=== PATIENT | male | born 1945 | race Caucasian/White ===

== ENCOUNTER 2016-12-28 12:53 | Day surgery (SDC) | payer MEDICARE, OTHER ==
[~2016-12-28 12:53] MED LIST: RINGER'S SOLUTION,LACTATED 1,000 ML IV PRN
--- OUTSIDE RECORDS SUMMARY | 2016-12-28 12:57 | XMS REPORT | Continuity of Care Document ---
:1945 Author Organization [facility] ([facility]) Address [place] [address] Phone [phone] Care Team Providers Name Role Phone Cody See Primary Care Provider [phone] Source Comments This disclosure is being made pursuant to the Care Everywhere program, applicable federal and state laws, and may not contain all informaitonavailable regarding this patient.[facility] ([facility]) Active Allergies and Adverse Reactions Allergen Noted Date Severity Reactions Comments Sulfa (Sulfonamide Antibiotics) 05/12/2011 OTHER Current Medications Prescription Sig. Disp. Refills Start End Status Date Date doxazosin 8 mg tablet Take 8 mg by Active mouth daily. hydrochlorothiazide 25 Take 25 mg by Active mg tablet mouth daily. MULTIVITAMIN PO Take 2 tablets Active by mouth 2 times daily. Oncovite ocular lubricant Instill 1 Drop Active (REFRESH) 1.4-0.6 % onto both eyes ophthalmic dropperette every evening. acetaminophen 500 mg Take 1,000 mg by Active tablet mouth daily as needed. aspirin 81 mg EC tablet Take 81 mg by Active mouth daily. docusate 100 mg capsule Take 1 capsule 30 capsule 0 09/01/20 Active (100 mg total) 16 by mouth 2 times daily. Take until you are no longer taking prescription pain medications to reduce the risk of constipation. Hold for loose stools. fluorometholone 0.1 % Instill 1 Drop 15 mL 11 12/10/19 Active ophthalmic suspension onto both eyes 17 daily. fluorometholone 0.1 % Instill 1 Drop 15 mL 6 08/11/20 Discontinued ophthalmic suspension onto both eyes 16 017 daily. INV hexaminolevulinate Instill into the 50 mL 0 08/20/20 Discontinued CYSVIEW (PC B308/13 bladder as per 16 017 PHOTOCURE ASA STUDY) protocol. bladder solution INV hexaminolevulinate Instill 50 mL 50 mL 0 09/01/20 Discontinued CYSVIEW (PC B308/13 into the bladder 16 017 PHOTOCURE ASA STUDY) as per protocol. bladder solution HYDROcodone-acetaminoph Take 1-2 tablets 30 tablet 0 09/01/20 Discontinued en 5-325 mg per tablet by mouth every 6 16 017 hours as needed for pain. Do not take more than 10 tablets in a 24 hour period. Do not take Tylenol or any other medications containing acetaminophen while using this medication. 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, both eyes 05/12/2011 Myopia 05/12/2011 Presbyopia 05/12/2011 MGD (meibomian gland disease) 05/12/2011 Nystagmus 05/12/2011 Most Recent Encounters Date Type Specialty Providers Description 12/11/2016 Office Visit Urology Loyd Almonte Subj: Heena Ortega MD Scheduled 12/09/2016 Orders Only Ophthalmology - Yane, Dx: Post corneal Specialty Wilfrid Alberto MD transplant (Primary Dx) 12/03/2016 Office Visit UrologLoyd Raman Dx: CIS (carcinoma MD Jordan in situ of bladder) (Primary Dx) 10/23/2016 Office Visit UrologLoyd Raman Dx: CIS (carcinoma MD Jordan in situ of bladder) Kayley Vance ARNP (Primary Dx) 2016 Orders/Notes Urology Kayley Vance ARNP 2016 Telephone Urology Loyd Almonte Chief Comp: MD Jordan Medication Question 10/16/2016 Office Visit UrologLoyd Raman Subj: Heena Ortega MD Scheduled Katerin Brito PA-C 10/16/2016 Office Visit Urology Loyd Almonte Dx: CIS (carcinoma MD Jordan in situ of bladder) Katerin Brito, (Primary Dx) DAVID 10/09/2016 Office Visit Urology Loyd Almonte Dx: CIS (carcinoma MD Jordan in situ of bladder) Elvira Ramos, (Primary Dx) DAVID 10/07/2016 Telephone Urology Loyd Almonte Chief Comp: Patient MD Jordan Concern 09/30/2016 Office Visit Ophthalmology - Jeff aCrey, Dx: Fuchs' corneal Specialty OD dystrophy (Primary Dx) Social History Tobacco Use Types Packs/Day Years Used Date Never Smoker Smokeless Tobacco: Never Used Tobacco Cessation:Counseling Given: Yes Comments: Alcohol Use Drinks/Week oz/Week Comments No Last Filed Vital Signs Vital Sign Reading Time Taken Blood Pressure 178/84 12/03/2016 1:33 PM CDT Pulse 72 12/03/2016 1:33 PM CDT Temperature 36 C (96.8 F) 12/03/2016 1:33 PM CDT Respiratory Rate 14 09/01/2016 11:39 AM GOLF COURSE ASSISTANT Height 1.676 m (5' 6") 09/01/2016 9:07 AM GOLF COURSE ASSISTANT Weight 137.5 kg (303 lb 2.1 oz) 10/16/2016 8:58 AM GOLF COURSE ASSISTANT Body Mass Index 48.95 10/16/2016 8:58 AM GOLF COURSE ASSISTANT Oxygen Saturation 96% 09/01/2016 1:45 PM GOLF COURSE ASSISTANT Plan of Care Date Type Specialty Providers Description 03/11/2017 Appointment Urology Loyd Almonte Subj: Heena Ortega MD Scheduled [address] [place] [address] [phone] (Fax) 08/11/2017 Appointment Ophthalmology - Alesia Winslow, Subj: Appointment Specialty OD Scheduled [address] [place] [address] [phone] (Fax) Health Maintenance Due Date Last Done Comments HCV Screening 1945 Hepatitis B Vaccine (1 of 3 - Primary Series) 1945 Tdap Vaccine 1956 Lipid Disorder Screening 1963 Td Vaccine 1963 Colonoscopy 1995 Prostate Cancer Screening 1995 Zoster Vaccine 2005 Pneumococcal Vaccine (1 of 2 - PCV13) 2010 Influenza Vaccine: Seasonal (Season Ended) 2017 Procedures from Last 3 Months Procedure Name Priority Date/Time Associated Comments Diagnosis SCOPE OF BLADDER AND Routine 12/11/2016 8:38 CIS (carcinoma in Results for this URETHRA, FOR DIAGNOSIS AM CDT situ of bladder) procedure are in the results section. [facility] Routine 10/23/2016 10:41 CIS (carcinoma in Results for this ANTICARCINOGENIC AGT AM GOLF COURSE ASSISTANT situ of bladder) procedure are in the results section. [facility] Routine 10/16/2016 12:55 CIS (carcinoma in Results for this ANTICARCINOGENIC AGT PM GOLF COURSE ASSISTANT situ of bladder) procedure are in the results section. [facility] Routine 10/09/2016 9:43 CIS (carcinoma in Results for this ANTICARCINOGENIC AGT AM GOLF COURSE ASSISTANT situ of bladder) procedure are in the results section. Results from Last 3 Months CYSTOSCOPY (12/11/2016 8:38 AM) Narrative Loyd Almonte MD 12/11/20168:38 AM Urology Clinic Note Encounter Date: 12/03/2016 Subjective: Chief Complaint Chief Complaint Patient presents with Patient Reported Reason For Visit ADD to already scheduled urology f/u; cystoscopy with Dr Almonte in week of november 30 History of Present Illness: Odalis Mendoza is a 71 y.o. male seen for #3/3 Maintainence A of quadruple immunotherapy intravesical therapy. The patient has history of high grade T1 bladder cancer diagnosed in 2006 who underwent 4 treatments of intravesical mitomycin C. He underwent biopsy x2 of suspicious regions of the bladder on 01/02/16 on the posterior wall with path returning as CIS. He has since undergone 6/6 induction intravesical BCG/IFN treatments. He had restaging done on 04/21/16. Final pathology showed CIS with abnormal FISH (13/40) and negative urine cytology.Received 6/6 induction intravesical treatment of Quad Immunotherapy on 07/03/16. Cystoscopy with cysview on 08/20/16 revealed two areas ~ 2 cm square of increased pink FLAT fluorescence in the left upper lateral region and in the right upper lateral region. On 09/01/16 operative restaging and TURBT of small bladder tumor (<2 cm contiguous area near the right ureteral orifice); bladder biopsies negative; bladder wash cytology negative; normal FISH. He has completed maintenance A of Quad Immunotherapy on 10/23/16 and returns for cystoscopy Initial Pathology:high grade T1 bladder cancer 2006 Most Recent Positive: 04/28/2016 CIS, positive FISH, negative cytology Most Recent Negative Stagin09/01/2016 negative biopsy, cytology and normal FISH Treatment Cycle: completed Maintenance A of BCG/IFN Last Cystoscopy: 08/20/2016 two areas ~ 2 cm square of increased pink FLAT fluorescence in the left upper lateral region and in the right upper lateral region Last Cytology:normal 08/20/2016 Last FISH: 08/20/2016 and 09/04/[address] scan: 03/30/2016 no evidence of upper tract disease, no lymphadenopathy, mild nodularity of post/sup wall of bladder Active Problem List with Overview Notes Diagnosis Date Noted 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, both eyes 05/12/2011 Myopia 05/12/2011 Presbyopia 05/12/2011 MGD (meibomian gland disease) 05/12/2011 Nystagmus 05/12/2011 Past Surgical History Procedure Laterality Date Nlkenlvnxx38/17/2012 Hernia repair Left inguinal Knee surgery Left patella removed Bilateral extraction of cataracts with lens implants Bilateral Scope bladder and urethra, with biopsy N/A 08/24/2013 Procedure: BC W/ BIOPSY;Surgeon: Logan Sharif MD; Location: UROLOGY OR;Service: Urology Bladder [id number] Orthopedic [id number] Shoulder separation Scope bladder and urethra, with biopsy N/A 01/02/2016 Procedure: BC W/ BIOPSY;Surgeon: Logan Sharif MD; Location: UROLOGY OR;Service: Urology Scope bladder and urethra, with biopsy N/A 04/21/2016 Procedure: BC W/ BIOPSY;Surgeon: Loyd Almonte MD; Location: UROLOGY OR;Service: Urology Scope bladder, removal of tumors, small N/A 09/01/2016 Procedure: BC W/ FULG &/OR RESECTION, SM BLADDER TUMOR; Surgeon: Loyd Almonte MD;Location: UROLOGY OR; Service: Urology Scope bladder and urethra, with biopsy N/A 09/01/2016 Procedure: BC W/ BIOPSY;Surgeon: Loyd Almonte MD; Location: UROLOGY OR;Service: Urology Family History Problem Relation Age of Onset Hypertension Father Heart Disease Brother Heart Disease Mother Heart Disease Brother Diabetes Mother Diabetes Brother Diabetes Brother Social History Social History Marital Status: Spouse Name: farideh Number of Children: 1 Years of Education: N/A Occupational History Not on file. Social History Main Topics Smoking status: Never Smoker Smokeless tobacco: Never Used Alcohol Use: No Drug Use: No Sexual Activity: Partners: Female Other Topics Concern Caffeine Concern Yes Weight Concern Yes Social History Narrative Current Outpatient Prescriptions Medication Sig Dispense Refill acetaminophen 500 mg tablet Take 1,000 mg by mouth daily as needed. aspirin 81 mg EC tablet Take 81 mg by mouth daily. docusate 100 mg capsule Take 1 capsule (100 mg total) by mouth 2 times daily. Take until you are no longer taking prescription pain medications to reduce the risk of constipation. Hold for loose stools. (Patient taking differently: Take 100 mg by mouth 2 times daily as needed. Take until you are no longer taking prescription pain medications to reduce the risk of constipation. Hold for loose stools.) 30 capsule 0 doxazosin 8 mg tablet Take 8 mg by mouth daily. fluorometholone 0.1 % ophthalmic suspension Instill 1 Drop onto both eyes daily. 15 mL 6 hydrochlorothiazide 25 mg tablet Take 25 mg by mouth daily. MULTIVITAMIN PO Take 2 tablets by mouth 2 times daily. Oncovite ocular lubricant (REFRESH) 1.4-0.6 % ophthalmic dropperette Instill 1 Drop onto both eyes every evening. No current facility-administered medications for this visit. Allergies Allergen Reactions Sulfa (Sulfonamide Antibiotics) OTHER Review of Systems All systems were reviewed and are negative except for: Ears: Ringing in the ears Urogenital:Up at night to urinate Cancer: Yes Other issues: None See HPI. All other ROS negative. Objective: BP 178/84 mmHg | Pulse 72 | Temp(Src) 36 C (96.8 F) (Tympanic) General:NAD, A&Ox3 Lungs: unlabored Skin: pink, warm, dry Neuro:Grossly intact Psych:Normal affect Cystoscopy Performed by: NANCY MEDINA Ordered by: LOYD ALMONTE Procedure Details: Cystoscopy (13508) Patient tolerance: Patient tolerated the procedure well with no immediate complications Supervision type: Direct Comments: After informed written consent was obtained, the patient was identified and taken to the procedure suite. Antibiotics were administered.The perineum was prepped and draped in the standard sterile fashion.Viscous Lidocaine jelly was injected into the urethra.A flexible cystoscope was then navigated into the bladder under direct visualization. Panendoscopy of the bladder did not reveal any suspicious lesions, papillary growths, foreign bodies or calculi.The cystoscope was then retroflexed upon itself and the bladder neck visualized; no abnormalities were detected.Bladder washings were then obtained and sent for cytology.The cystoscope was then slowly withdrawn; no urethral abnormalities were detected. The patient tolerated the procedure well and without any immediate complications. Assessment: Odalis Mendoza is a 71 y.o. malewith a history of T1HG UTC + CIS who recent completed quad immunotherapy on 07/03/16 for residual CIS of the bladder. Blue light cystoscopy performed in the clinic on 08/20/16 showed "two areas ~ 2 cm square of increased pink FLAT fluorescence in the left upper lateral region and in the right upper lateral region". Operative restaging 09/01/16 with resection small bladder tumor (<2 cm contiguous area near the right ureteral orifice); bladder biopsies and bladder wash cytology negative.Has completed Maintenance A of Quad immunotherapy. Cystoscopy unremarkable today, pending cytology and FISH results. Plan: RTC 3 months with cysto, cytology, FISH SILVESTRE Hanna Staff Involved Staff and PA/RELATIONSHIP MANAGEMENT LEAD/PNP/NM (team effort NPP & Faculty documentation) Staff Physician Statement I have discussed the case with the non-physician provider and have personally documented the History, Physical Exam, and Assessment and Plan in the Staff Physician Note section as noted below. 71 y.o. malewith a history of T1HG UTC + CIS who recent completed quad immunotherapy on 07/03/16 for residual CIS of the bladder. Blue light cystoscopy performed in the clinic on 08/20/16 showed "two areas ~ 2 cm square of increased pink FLAT fluorescence in the left upper lateral region and in the right upper lateral region". Operative restaging 09/01/16 with resection small bladder tumor (<2 cm contiguous area near the right ureteral orifice); bladder biopsies and bladder wash cytology negative.Has completed Maintenance A of Quad immunotherapy.Feeling well. Exam unremarkable. 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 Plan: Cystoscopy unremarkable today, pending cytology and FISH result. RTC 3 months with cysto, cytology, FISH. Loyd Almonte MD, FACS Professor & Director of Urologic Oncology [facility] CYTOGENETICS - FISH STUDY (12/03/2016 3:12 PM) Component Value Range Case Report Cytogenetics Fish Study Case: [id number] Authorizing Provider:Tessa Marie ARNP Collected: 12/03/2016 03:12 PM Ordering Location: Urology Clinic Received: 12/04/2016 10:01 AM Pathologist: Romero Carlos MD Specimen:Bladder Washing FISH Final Result Normal Normal Final Interpretation Comment Patient Name: ODALIS MENDOZA Physician: Dr. Mcguire Cytogenetics Lab No.:[id number] Specimen No.:[id number] FISH Performed on: BLADDER CELLS Date Collected:12/03/2016 Date Requested:12/03/2016 Date of Visit: 12/03/2016 Date Received in Lab:12/03/2016 Date of Final Report:12/11/2016 Technologist(s): RUCHI INDICATIONS: UROVYSION, BLADDER CANCER METHODS/RESULTS: Fluorescence in situ hybridization (FISH) studies were performed on nuclei using the UroVysion Bladder Cancer Recurrence Kit which consists of a 4-probe mixture containing DNA sequences specific for centromere regions of chromosomes 3, 7, 17 and locus specific region for chromosome 9p21. INTERPRETATION: NORMAL FISH RESULTS Molecular cytogenetic studies were normal in 50 nuclei examined in this specimen. These findings should be interpreted in conjunction with morphology and/or other ancillary studies. Intended Use and Limitations:The [employer] UroVysion Bladder Cancer Recurrence Kit (UroVysion Kit) is designed to detect aneuploidy for chromosomes 3, 7, 17, and loss of the 9p21 locus via fluorescenc e in situ hybridization (FISH) in urine specimens from subjects with transitional cell carcinoma of the bladder.Results from the UroVysion Kit are intended for use as a noninvasive method for gagan toring for tumor recurrence in conjunction with cystoscopy in patients previously diagnosed with bladder cancer.A minimum of 25 morphologically abnormal cells are analyzed.The signal distribut ion for morphologically abnormal cells showing either a gain of multiple chromosomes (i.e., 3 or more signals for more than one of the following probes: CEP3 red, CEP7 green or CEP17) or a homozygous loss of 9p21 (i.e., no signals for LSI 9p21 yellow probe) is recorded. Analysis continues until either >=4 cells with gains of multiple chromosomes or >=12 cells with homozygous loss of 9p21 are detected, or until the entire sample is analyzed.Results are reported as the number of chromosomally abnormal cells.Specimens that show > =4 cells with multiple chromosome gains or >= 12 cells with loss of both copies of 9p21 are considered positive for bladder cancer recurrence.If the results are at or near the cut-off point, results should be interpreted with caution and in t he context of other clinical findings.Positive FISH results in the absence of other signs or symptoms of bladder cancer recurrence may be evidence of other urinary tract related cancers, e.g., ure ter, urethra, renal, and/or prostate in males, and further patient follow-up is justified.Negative FISH results in the presence of other signs and symptoms of bladder cancer recurrence need to be regarded as suspicious false negative results; repeat slide interpretation or testing would be indicated.Although the Vysis UroVysion Kit was designed to detect genetic changes associated with mos t bladder cancers, there will be some bladder cancers whose genetic changes cannot be detected by the UroVysion test.Although this FISH probe kit has been approved by the U.S. FDA as an in vitro d iagnostic product the protocol has been modified and the new performance characteristics determined by the [facility] as required by the CLIA '88 regulations.This m odified protocolhas not been cleared or approved by the U.S. Food and Drug Administration.The FDA has determined that such clearance or approval is not necessary.Pursuant to the requiremen ts of CLIA '88, this laboratory has established and certified the test's accuracy and precision. This test is used for clinical purposes and should not be regarded as investigational or for research. Specimen Blood - Bladder Washing CYTOLOGY NON-PLUMBING SERVICE TECHNICIAN EXAM (12/03/2016 3:12 PM) Component Value Range Case Report Non-Ram Press Operator Cytopathology Case: [id number] Authorizing Provider:Tessa Marie ARNP Collected: 12/03/2016 03:12 PM Ordering Location: Urology Clinic Received: 12/04/2016 07:46 AM Pathologist: Wayne Cedeno MD Specimen:Bladder Washing Interpretation Bladder washing:Negative for high grade urothelial carcinoma. I have personally reviewed this case and edited the report as necessary. Specimen Description 60 mL yellow fluid Specimen Other - Bladder Washing BLADDER CATHETERIZATION (10/23/2016 10:41 AM) Narrative Kayley Vance ARNP 10/23/2016 10:41 AM Urology Clinic Note Encounter Date: 10/23/2016 Subjective: Chief Complaint Chief Complaint Patient presents with Patient Reported Reason For Visit A quad immunotherapy to start 4-6 weeks from 09/01/16 History of Present Illness: Odalis Mendoza is a 71 y.o. male seen for #3/3 Maintainence A of quadruple immunotherapy intravesical therapy. The patient has history of high grade T1 bladder cancer diagnosed in 2006 who underwent 4 treatments of intravesical mitomycin C. He underwent biopsy x2 of suspicious regions of the bladder on 01/02/16 on the posterior wall with path returning as CIS. He has since undergone 6/6 induction intravesical BCG/IFN treatments. He had restaging done on 04/21/16. Final pathology showed CIS with abnormal FISH (13/40) and negative urine cytology.Recieved # 6 of induction intravesical treatment of Quad Immunotherapy on 07/03/16. Cystoscopy with cysview on 08/20/16 revealed two areas ~ 2 cm square of increased pink FLAT fluorescence in the left upper lateral region and in the right upper lateral region. On 09/01/16 operative restaging and TURBT of small bladder tumor (<2 cm contiguous area near the right ureteral orifice); bladder biopsies negative; bladder wash cytology negative; normal FISH. He denies hematuria, fever. 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, both eyes 05/12/2011 Myopia 05/12/2011 Presbyopia 05/12/2011 MGD (meibomian gland disease) 05/12/2011 Nystagmus 05/12/2011 Past Surgical History Procedure Laterality Date Qorcqaenaw98/17/2012 Hernia repair Left inguinal Knee surgery Left patella removed Bilateral extraction of cataracts with lens implants Bilateral Scope bladder and urethra, with biopsy N/A 08/24/2013 Procedure: BC W/ BIOPSY;Surgeon: Logan Sharif MD; Location: UROLOGY OR;Service: Urology Bladder [id number] Orthopedic [id number] Shoulder separation Scope bladder and urethra, with biopsy N/A 01/02/2016 Procedure: BC W/ BIOPSY;Surgeon: Logan Sharif MD; Location: UROLOGY OR;Service: Urology Scope bladder and urethra, with biopsy N/A 04/21/2016 Procedure: BC W/ BIOPSY;Surgeon: Loyd Almonte MD; Location: UROLOGY OR;Service: Urology Scope bladder, removal of tumors, small N/A 09/01/2016 Procedure: BC W/ FULG &/OR RESECTION, SM BLADDER TUMOR; Surgeon: Loyd Almonte MD;Location: UROLOGY OR; Service: Urology Scope bladder and urethra, with biopsy N/A 09/01/2016 Procedure: BC W/ BIOPSY;Surgeon: Loyd Almonte MD; Location: UROLOGY OR;Service: Urology Family History Problem Relation Age of Onset Hypertension Father Heart Disease Brother Diabetes Brother Heart Disease Mother Heart Disease Brother Diabetes Mother Diabetes Brother Social History Social History Marital Status: Spouse Name: farideh Number of Children: 1 Years of Education: N/A Occupational History Not on file. Social History Main Topics Smoking status: Never Smoker Smokeless tobacco: Never Used Alcohol Use: No Drug Use: No Sexual Activity: Partners: Female Other Topics Concern Caffeine Concern Yes Weight Concern Yes Social History Narrative Current Outpatient Prescriptions Medication Sig Dispense Refill acetaminophen 500 mg tablet Take 1,000 mg by mouth daily as needed. aspirin 81 mg EC tablet Take 162 mg by mouth daily. docusate 100 mg capsule Take 1 capsule (100 mg total) by mouth 2 times daily. Take until you are no longer taking prescription pain medications to reduce the risk of constipation. Hold for loose stools. 30 capsule 0 doxazosin 8 mg tablet Take 8 mg by mouth daily. fluorometholone 0.1 % ophthalmic suspension Instill 1 Drop onto both eyes daily. 15 mL 6 hydrochlorothiazide 25 mg tablet Take 25 mg by mouth daily. HYDROcodone-acetaminophen 5-325 mg per tablet Take 1-2 tablets by mouth every 6 hours as needed forpain. Do not take more than 10 tablets in a 24 hour period. Do not take Tylenol or any other medications containing acetaminophen while using this medication. 30 tablet 0 INV hexaminolevulinate CYSVIEW (PC B308/13 PHOTOCURE ASA STUDY) bladder solution Instill into the bladder as per protocol. 50 mL 0 INV hexaminolevulinate CYSVIEW (PC B308/13 PHOTOCURE ASA STUDY) bladder solution Instill 50 mL into the bladder as per protocol. 50 mL 0 MULTIVITAMIN PO Take 1 tablet by mouth daily. ocular lubricant (REFRESH) 1.4-0.6 % ophthalmic dropperette Instill 1 Drop onto both eyes every evening. No current facility-administered medications for this visit. Allergies Allergen Reactions Sulfa (Sulfonamide Antibiotics) OTHER Review of Systems See HPI. All other ROS negative. Objective: There were no vitals taken for this visit. General:NAD, A&Ox3 Lungs: unlabored Skin: pink, warm, dry Neuro:Grossly intact Psych:Normal affect Bladder catheterization Performed by: KAYLEY VANCE Catheter detail: intravesical instillation of chemotherapeutic agent (88549) Instillation: BCG/IFN Catheter size: 14 Fr Patient tolerance: Patient tolerated the procedure well with no immediate complications Supervision type: Indirect 250 mcg/ml of Leukine was administered SQ in the RLQ. The urethral meatus and surrounding area was prepped sterilely with Betadine solution. 2% Lidocaine jelly was given into the urinary meatus. A 14-Albanian catheter was passed into the bladder, and the bladder was drained of clear yellow urine. 0.1 vial of BCG and 50 million units of alpha interferon 2b and 21.6 million units of proleukin was given via catheterinto the bladder. The catheter was removed. The patient was instructed to hold the bladder solution for 2 hours prior to voiding. Assessment: Odalis Mendoza is a 71 y.o. malewith a history of T1HG UTC + CIS who recent completed quad immunotherapy on 07/03/16 for residual CIS of the bladder. Blue light cystoscopy performed in the clinic on 08/20/16 showed "two areas ~ 2 cm square of increased pink FLAT fluorescence in the left upper lateral region and in the right upper lateral region". Operative restaging 09/01/16 with resection small bladder tumor (<2 cm contiguous area near the right ureteral orifice); bladder biopsies and bladder wash cytology negative.He is now receiving maintenance therapy. Plan: Today completes Maintenance A.Surveillance cystoscopy scheduled for 12/03/16 Dr Gandara was available for consult. SILVESTRE Beltran BLADDER CATHETERIZATION (10/16/2016 12:55 PM) Narrative Katerin Brito PA-C 10/16/2016 12:55 PM Urology Clinic Note Encounter Date: 10/16/2016 Subjective: Chief Complaint Chief Complaint Patient presents with Procedure A quad immunotherapy to start 4-6 weeks from 09/01/16 History of Present Illness: Odalis Mendoza is a 70 y.o. male seen for #2/3 Maintainence A of quadruple immunotherapy intravesical therapy. The patient has history of high grade T1 bladder cancer diagnosed in 2006 who underwent 4 treatments of intravesical mitomycin C. He underwent biopsy x2 of suspicious regions of the bladder on 01/02/16 on the posterior wall with path returning as CIS. He has since undergone 6/6 induction intravesical BCG/IFN treatments. He had restaging done on 04/21/16. Final pathology showed CIS with abnormal FISH (13/40) and negative urine cytology.Recieved # 6 of induction intravesical treatment of Quad Immunotherapy on 07/03/16. Cystoscopy with cysview on 08/20/16 revealed two areas ~ 2 cm square of increased pink FLAT fluorescence in the left upper lateral region and in the right upper lateral region. On 09/01/16 operative restaging and TURBT of small bladder tumor (<2 cm contiguous area near the right ureteral orifice); bladder biopsies negative; bladder wash cytology negative; normal FISH. He denies hematuria, fever. 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, both eyes 05/12/2011 Myopia 05/12/2011 Presbyopia 05/12/2011 MGD (meibomian gland disease) 05/12/2011 Nystagmus 05/12/2011 Past Surgical History Procedure Laterality Date Yhgobzqyph11/17/2012 Hernia repair Left inguinal Knee surgery Left patella removed Bilateral extraction of cataracts with lens implants Bilateral Scope bladder and urethra, with biopsy N/A 08/24/2013 Procedure: BC W/ BIOPSY;Surgeon: Logan Sharif MD; Location: UROLOGY OR;Service: Urology Bladder [id number] Orthopedic [id number] Shoulder separation Scope bladder and urethra, with biopsy N/A 01/02/2016 Procedure: BC W/ BIOPSY;Surgeon: Logan Sharif MD; Location: UROLOGY OR;Service: Urology Scope bladder and urethra, with biopsy N/A 04/21/2016 Procedure: BC W/ BIOPSY;Surgeon: Loyd Almonte MD; Location: UROLOGY OR;Service: Urology Scope bladder, removal of tumors, small N/A 09/01/2016 Procedure: BC W/ FULG &/OR RESECTION, SM BLADDER TUMOR; Surgeon: Loyd Almonte MD;Location: UROLOGY OR; Service: Urology Scope bladder and urethra, with biopsy N/A 09/01/2016 Procedure: BC W/ BIOPSY;Surgeon: Loyd Almonte MD; Location: UROLOGY OR;Service: Urology Family History Problem Relation Age of Onset Hypertension Father Heart Disease Brother Diabetes Brother Heart Disease Mother Heart Disease Brother Diabetes Mother Diabetes Brother Social History Social History Marital Status: Spouse Name: farideh Number of Children: 1 Years of Education: N/A Occupational History Not on file. Social History Main Topics Smoking status: Never Smoker Smokeless tobacco: Never Used Alcohol Use: No Drug Use: No Sexual Activity: Partners: Female Other Topics Concern Caffeine Concern Yes Weight Concern Yes Social History Narrative Current Outpatient Prescriptions Medication Sig Dispense Refill acetaminophen 500 mg tablet Take 1,000 mg by mouth daily as needed. aspirin 81 mg EC tablet Take 162 mg by mouth daily. docusate 100 mg capsule Take 1 capsule (100 mg total) by mouth 2 times daily. Take until you are no longer taking prescription pain medications to reduce the risk of constipation. Hold for loose stools. 30 capsule 0 doxazosin 8 mg tablet Take 8 mg by mouth daily. fluorometholone 0.1 % ophthalmic suspension Instill 1 Drop onto both eyes daily. 15 mL 6 hydrochlorothiazide 25 mg tablet Take 25 mg by mouth daily. HYDROcodone-acetaminophen 5-325 mg per tablet Take 1-2 tablets by mouth every 6 hours as needed forpain. Do not take more than 10 tablets in a 24 hour period. Do not take Tylenol or any other medications containing acetaminophen while using this medication. 30 tablet 0 INV hexaminolevulinate CYSVIEW (PC B308/13 PHOTOCURE ASA STUDY) bladder solution Instill into the bladder as per protocol. 50 mL 0 INV hexaminolevulinate CYSVIEW (PC B308/13 PHOTOCURE ASA STUDY) bladder solution Instill 50 mL into the bladder as per protocol. 50 mL 0 MULTIVITAMIN PO Take 1 tablet by mouth daily. ocular lubricant (REFRESH) 1.4-0.6 % ophthalmic dropperette Instill 1 Drop onto both eyes every evening. Current Facility-Administered Medications Medication Dose Route Frequency Provider Last Rate Last Dose naproxen (NAPROSYN) tablet 250 mg250 mg Oral Once PRN Katerin Brito PA-C Allergies Allergen Reactions Sulfa (Sulfonamide Antibiotics) OTHER Review of Systems See HPI. All other ROS negative. Objective: BP 140/68 mmHg | Pulse 65 | Temp(Src) 36.4 C (97.5 F) (Tympanic) | Wt 137.5 kg (303 lb 2.1 oz) General:NAD, A&Ox3 Lungs: unlabored Skin: pink, warm, dry Neuro:Grossly intact Psych:Normal affect Bladder catheterization Performed by: KATERIN BRITO Catheter detail: intravesical instillation of chemotherapeutic agent ([id number]) Instillation: BCG/IFN Catheter type: Gomes Catheter size: 14 Fr Patient tolerance: Patient tolerated the procedure well with no immediate complications Supervision type: Indirect 250 mcg/ml of Leukine was administered SQ in the LUQ. The urethral meatus and surrounding area was prepped sterilely with Betadine solution. 2% Lidocaine jelly was given into the urinary meatus. A 14-Albanian catheter was passed into the bladder, and the bladder was drained of clear yellow urine. 0.1 vial of BCG and 50 million units of alpha interferon 2b and 21.6 million units of proleukin was given via catheterinto the bladder. The catheter was removed. The patient was instructed to hold the bladder solution for 2 hours prior to voiding. Assessment: Odalis Mendoza is a 70 y.o. malewith a history of T1HG UTC + CIS who recent completed quad immunotherapy on 07/03/16 for residual CIS of the bladder. Blue light cystoscopy performed in the clinic on 08/20/16 showed "two areas ~ 2 cm square of increased pink FLAT fluorescence in the left upper lateral region and in the right upper lateral region". Operative restaging 09/01/16 with resection small bladder tumor (<2 cm contiguous area near the right ureteral orifice); bladder biopsies and bladder wash cytology negative.He is now receiving maintenance therapy. Plan: Scheduled 10/23/16 for #3/3 Maintainence A of quadruple immunotherapy intravesical therapy. Hand outs provided to pt - BCAN Dr Almonte was available for consult. LANETTE Saavedra BLADDER CATHETERIZATION (10/09/2016 9:43 AM) Narrative Elvira Ramos PA-C 10/09/20169:43 AM Urology Clinic Note Encounter Date: 10/09/2016 Subjective: Chief Complaint Chief Complaint Patient presents with Procedure A quad immunotherapy to start 4-6 weeks from 09/01/16 History of Present Illness: Odalis Mendoza is a 70 y.o. male seen for #1/3 MaintainenceA of quadruple immunotherapy intravesical therapy. The patient has history of high grade T1 bladder cancer diagnosed in 2006 who underwent 4 treatments of intravesical mitomycin C. He underwent biopsy x2 of suspicious regions of the bladder on 01/02/16 on the posterior wall with path returning as CIS. He has since undergone 6/6 induction intravesical BCG/IFN treatments. He had restaging done on 04/21/16. Final pathology showed CIS with abnormal FISH (13/40) and negative urine cytology.Recieved # 6 of induction intravesical treatment of Quad Immunotherapy on 07/03/16. Cystoscopy with cysview on 08/20/16 revealed two areas ~ 2 cm square of increased pink FLAT fluorescence in the left upper lateral region and in the right upper lateral region. On 09/01/16 operative restaging and TURBT of small bladder tumor (<2 cm contiguous area near the right ureteral orifice); bladder biopsies negative; bladder wash cytology negative; normal FISH. Today the patient denies hematuria, fever, or chills. 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, both eyes 05/12/2011 Myopia 05/12/2011 Presbyopia 05/12/2011 MGD (meibomian gland disease) 05/12/2011 Nystagmus 05/12/2011 Past Surgical History Procedure Laterality Date Peftrojrla76/17/2012 Hernia repair Left inguinal Knee surgery Left patella removed Bilateral extraction of cataracts with lens implants Bilateral Scope bladder and urethra, with biopsy N/A 08/24/2013 Procedure: BC W/ BIOPSY;Surgeon: Logan Sharif MD; Location: UROLOGY OR;Service: Urology Bladder [id number] Orthopedic [id number] Shoulder separation Scope bladder and urethra, with biopsy N/A 01/02/2016 Procedure: BC W/ BIOPSY;Surgeon: Logan Sharif MD; Location: UROLOGY OR;Service: Urology Scope bladder and urethra, with biopsy N/A 04/21/2016 Procedure: BC W/ BIOPSY;Surgeon: Loyd Almonte MD; Location: UROLOGY OR;Service: Urology Scope bladder, removal of tumors, small N/A 09/01/2016 Procedure: BC W/ FULG &/OR RESECTION, SM BLADDER TUMOR; Surgeon: Loyd Almonte MD;Location: UROLOGY OR; Service: Urology Scope bladder and urethra, with biopsy N/A 09/01/2016 Procedure: BC W/ BIOPSY;Surgeon: Loyd Almonte MD; Location: UROLOGY OR;Service: Urology Family History Problem Relation Age of Onset Hypertension Father Heart Disease Brother Diabetes Brother Heart Disease Mother Heart Disease Brother Diabetes Mother Diabetes Brother Social History Social History Marital Status: Spouse Name: farideh Number of Children: 1 Years of Education: N/A Occupational History Not on file. Social History Main Topics Smoking status: Never Smoker Smokeless tobacco: Never Used Alcohol Use: No Drug Use: No Sexual Activity: Partners: Female Other Topics Concern Caffeine Concern Yes Weight Concern Yes Social History Narrative Current Outpatient Prescriptions Medication Sig Dispense Refill acetaminophen 500 mg tablet Take 1,000 mg by mouth daily as needed. aspirin 81 mg EC tablet Take 162 mg by mouth daily. docusate 100 mg capsule Take 1 capsule (100 mg total) by mouth 2 times daily. Take until you are no longer taking prescription pain medications to reduce the risk of constipation. Hold for loose stools. 30 capsule 0 doxazosin 8 mg tablet Take 8 mg by mouth daily. fluorometholone 0.1 % ophthalmic suspension Instill 1 Drop onto both eyes daily. 15 mL 6 hydrochlorothiazide 25 mg tablet Take 25 mg by mouth daily. HYDROcodone-acetaminophen 5-325 mg per tablet Take 1-2 tablets by mouth every 6 hours as needed forpain. Do not take more than 10 tablets in a 24 hour period. Do not take Tylenol or any other medications containing acetaminophen while using this medication. 30 tablet 0 INV hexaminolevulinate CYSVIEW (PC B308/13 PHOTOCURE ASA STUDY) bladder solution Instill into the bladder as per protocol. 50 mL 0 INV hexaminolevulinate CYSVIEW (PC B308/13 PHOTOCURE ASA STUDY) bladder solution Instill 50 mL into the bladder as per protocol. 50 mL 0 MULTIVITAMIN PO Take 1 tablet by mouth daily. ocular lubricant (REFRESH) 1.4-0.6 % ophthalmic dropperette Instill 1 Drop onto both eyes every evening. Current Facility-Administered Medications Medication Dose Route Frequency Provider Last Rate Last Dose naproxen (NAPROSYN) tablet 250 mg250 mg Oral Once PRN Elvira Ramos PA-C ondansetron (ZOFRAN) tablet 4 mg4 mg Oral Once Elvira Ramos PA-C Allergies Allergen Reactions Sulfa (Sulfonamide Antibiotics) OTHER Review of Systems See HPI. All other ROS negative. Objective: BP 152/84 mmHg | Pulse 78 | Temp(Src) 36 C (96.8 F) (Tympanic) Exam: General: alert, cooperative, no distress, appears stated age Head: Normocephalic, without obvious abnormality, atraumatic Eyes: conjunctivae clear.EOM's intact. Respiratory: no respiratory distress Abdominal: soft, non-distended Genital: penis: no lesions or discharge. Extremeties: extremities normal, atraumatic, no cyanosis or edema Neuro: mental status, speech normal, alert and oriented x 3 Skin: No rash Bladder catheterization Performed by: ELVIRA RAMOS Catheter detail: intravesical instillation of chemotherapeutic agent ([id number]) Instillation: BCG/IFN Catheter size: 14 Fr Patient tolerance: Patient tolerated the procedure well with no immediate complications Supervision type: Indirect Procedure: Received Naprosynpremed. 250 mcg/ml of Leukine was given SQ in the RUQ. The urethral meatus and surrounding area was prepped sterilely with Betadine solution. 2% Lidocaine jelly was given into the urinary meatus. A 14-Albanian catheter was passed into the bladder, and the bladder was drained of clear yellow urine. 0.33 vial of BCG and 50 million units of alpha interferon 2b and 21.6 million units of proleukin was given via catheterinto the bladder. The catheter was removed. The patient was instructed to hold the bladder solution for 2 hours prior to voiding. Assessment: Odalis Mendoza is a 70 y.o. malewith a history of T1HG UTC + CIS who recent completed quad immunotherapy on 07/03/16 for residual CIS of the bladder. Blue light cystoscopy performed in the clinic on 08/20/16 showed "two areas ~ 2 cm square of increased pink FLAT fluorescence in the left upper lateral region and in the right upper lateral region". Operative restaging 09/01/16 with resection small bladder tumor (<2 cm contiguous area near the right ureteral orifice); bladder biopsies and bladder wash cytology negative. Plan: Scheduled 10/16/16 for #2/3MaintainenceA of quadruple immunotherapy intravesical therapy. Staff Involved Dr Gandara was available for consult. LANETTE/SILVESTRE/ABHILASH/SABINO/JOSSY as primary Elvira Ramos PA-C
[2016-12-28] MEDS ORDERED: RINGER'S SOLUTION,LACTATED 1,000 ML IV ONE (13:42)
[2016-12-28] MEDS ORDERED: RINGER'S SOLUTION,LACTATED 1,000 ML IV PRN (17:46)
[2016-12-28 18:34] VITALS: BP 144/81
--- NOTE | 2016-12-29 18:33 | OR ---
Operative Report - Dictated Report Narrative: OPERATIVE REPORT DATE OF OPERATION: 12/28/2016 PREOPERATIVE DIAGNOSIS: No recent dedicated colon studies POSTOPERATIVE DIAGNOSIS: Moderate to severe sigmoid diverticulosis OPERATION: Colonoscopy SURGEON: Sebastien Barton MD ANESTHESIA: MAC Jeff Mclaughlin CRNA INDICATIONS FOR PROCEDURE: The patient is a 71-year-old male referred by Dr. Katerine Solis. The patient had diverticulosis on a colon exam in 2005. His aunt had colon cancer at age 80. He is currently asymptomatic FINDINGS: Moderate to severe sigmoid diverticulosis with additional proximal diverticula as well. No polyps NARRATIVE OF PROCEDURE: The patient was identified in the holding area, and prior to the administration of anesthetic, a multidisciplinary timeout was observed. With the patient in the left lateral position and after the administration of intravenous sedation, the perineum was inspected. There was no evidence of pilonidal disease or skin breakdown. The external appearance of the anus was normal. Sphincter tone was good. The flexible fiberoptic colonoscope was inserted into the rectum which was insufflated with air. The rectal mucosa and submucosal vascular pattern appeared normal, the prep was seen to be complete. The scope was advanced through the sigmoid colon, which contained numerous large non-impacted noninflamed diverticular openings. The scope was advanced up the descending colon, and around the splenic flexure where the triangular haustral architecture of the transverse colon was seen. The scope was advanced across the transverse colon, around the hepatic flexure to the cecum, where the confluence of tenia and the ileocecal valve were identified. The mucosa at this level appeared normal. The scope was then slowly withdrawn in a circular fashion so that all aspects of colonic mucosa were inspected. The colon was normal in course and caliber. The haustral architecture appeared well preserved throughout with no evidence of external compression. The mucosa and submucosal vascular pattern appeared normal, specifically there was no gross evidence to suggest colitis or inflammatory bowel disease and no AV malformations were seen. The diverticulosis was moderate to severe in degree and confined primarily to the sigmoid colon. No polyps were encountered. The scope was gradually withdrawn to the level of the rectum. As much insufflated air as possible was removed. The scope was withdrawn from the patient and the procedure terminated. The patient tolerated the anesthetic and procedure well without complication and was transferred back to the ambulatory surgery area awake and in stable condition. The patient remained stable throughout a period of postoperative observation. He denied abdominal discomfort, was able to tolerate by mouth intake, and was up without assistance. I shared the operative findings with the patient and he was given copies of the photographs which appear in the medical record. He was discharged home with instructions not to engage in hazardous activity today, but may resume normal activity tomorrow, and advance diet as tolerated. He is to continue those medications as listed in the history and physical exam. A pamphlet on diverticular disease was reviewed with him and given to him and suggestion made for higher fiber diet with possible use of Benefiber. The patient seems somewhat resistant to this. RECOMMEND: Colon surveillance in 10 years depending upon findings and symptoms Reviewed and electronically signed
== END 2016-12-28 12:54 | disposition home or self-care (01) ==
LOC: AMB 12:53
PROVIDERS: ATTEND Surgery
PROC: 0DJD8ZZ Inspection of Lower Intestinal Tract, Via Natural or Artificial Opening Endoscopic (ICD-10-PCS; principal; 2016-12-28 14:45)
DX: Z12.11 Encounter for screening for malignant neoplasm of colon (principal); K57.30 Diverticulosis of large intestine without perforation or abscess without bleeding; I10 Essential (primary) hypertension; G47.33 Obstructive sleep apnea (adult) (pediatric); E66.01 Morbid (severe) obesity due to excess calories; Z68.42 Body mass index [BMI] 45.0-49.9, adult; Z80.0 Family history of malignant neoplasm of digestive organs